=== PATIENT | female | born 1945 | race Caucasian/White ===

== ENCOUNTER → 2016-03-03 | Outpatient (CLI) | payer MEDICARE, BC ==
[~2016-03-03] MED LIST: CALCIUM 600MG+D1 TAB PO; CALCIUM600 MG PO; CINNAMON500 MG PO; DEEP SEA 45 ML45 ML; EVENING PRIMRO500 MG PO; FISH OIL500 MG PO; IBUPROFEN200 M1 PO; JANUVIA 100MG100 MG PO; MULTI MINERAL1 TAB; NATURE'S BLEND1 SG3 PO; NEURONTIN100 MG/CAP PO; NIACIN100 MG PO; NORCO 325 MG-51 TAB PO; NORVASC 5MG5 MG/TAB PO; OMEGA-3 FISH1000 MG PO; OMEPRAZOLE20 MG PO; PERCOCET 325 MG1 TA2 PO; PREMARIN0.625 MG PO; TOPROL XL50 MG PO; ULTRAM 50MG TAB50 MG PO; VITAMIN E100 I3 PO
== END ==
LOC: COL.RAD 09:25
DX: K74.69 Other cirrhosis of liver (principal); K76.89 Other specified diseases of liver

== ENCOUNTER 2016-10-12 08:13 | Day surgery (SDC) | payer MEDICARE, BC ==
[~2016-10-12] VITALS: Ht 149.9 cm; Wt 74.8 kg
[2016-10-12 09:05] VITALS: BP 127/52; PULSE 60; TEMP 97.5
[2016-10-12 09:35] VITALS: BP 126/56; PULSE 64; TEMP 97.6
[2016-10-12 09:50] VITALS: BP 127/63; PULSE 65
== END 2016-10-12 10:30 | disposition home or self-care (01) ==
LOC: SDCO 08:13
DX: K74.60 Unspecified cirrhosis of liver (principal); I85.10 Secondary esophageal varices without bleeding; K76.0 Fatty (change of) liver, not elsewhere classified; K76.6 Portal hypertension; K31.89 Other diseases of stomach and duodenum; I10 Essential (primary) hypertension; E11.9 Type 2 diabetes mellitus without complications; K57.30 Diverticulosis of large intestine without perforation or abscess without bleeding; D12.6 Benign neoplasm of colon, unspecified; K21.9 Gastro-esophageal reflux disease without esophagitis; Z79.84 Long term (current) use of oral hypoglycemic drugs; Z87.891 Personal history of nicotine dependence; Z86.73 Personal history of transient ischemic attack (TIA), and cerebral infarction without residual deficits
CPT/HCPCS: OP; J2704; J7030

== ENCOUNTER → 2016-11-24 | Outpatient (CLI) | payer MEDICARE, BC | LOC: COL.RAD 09:28 | DX: K74.69 Other cirrhosis of liver (principal) ==

== ENCOUNTER → 2017-01-18 | Outpatient (CLI) | payer MEDICARE, BC | LOC: MC.RAD 14:29 | DX: Z12.31 Encounter for screening mammogram for malignant neoplasm of breast (principal) ==

== ENCOUNTER 2017-05-10 07:38 | Day surgery (SDC) | payer MEDICARE, BC ==
[~2017-05-10] VITALS: Ht 149.9 cm; Wt 72.7 kg
[2017-05-10 08:32] VITALS: BP 124/49; PULSE 59; TEMP 98.5
[2017-05-10] MEDS ORDERED: MULTIPLE VITAMI1 CAP PO (08:53)
[2017-05-10 10:20] VITALS: BP 103/70; PULSE 61; TEMP 97.6
[2017-05-10 10:35] VITALS: BP 120/59; PULSE 63
[2017-05-10 10:50] VITALS: BP 122/63; PULSE 62
[2017-05-10 11:05] VITALS: BP 131/52; PULSE 67
== END 2017-05-10 11:12 | disposition home or self-care (01) ==
LOC: SDCO 07:38
DX: K76.6 Portal hypertension (principal); K74.69 Other cirrhosis of liver; I85.10 Secondary esophageal varices without bleeding; K29.30 Chronic superficial gastritis without bleeding; I10 Essential (primary) hypertension; E11.9 Type 2 diabetes mellitus without complications; E78.5 Hyperlipidemia, unspecified; Z79.84 Long term (current) use of oral hypoglycemic drugs; Z88.1 Allergy status to other antibiotic agents; Z88.8 Allergy status to other drugs, medicaments and biological substances; Z87.891 Personal history of nicotine dependence
CPT/HCPCS: OP; J2704; J7030

== ENCOUNTER → 2017-06-15 | Outpatient (CLI) | payer MEDICARE, BC ==
[~2017-06-15] MED LIST changes: +MULTIPLE VITAMI1 CAP PO
== END ==
LOC: COL.RAD 07:21
DX: R16.1 Splenomegaly, not elsewhere classified (principal)

== ENCOUNTER → 2017-11-22 | Outpatient (CLI) | payer MEDICARE, BC, MEDICAID | LOC: COL.RAD 08:02 | DX: K74.69 Other cirrhosis of liver (principal) ==

== ENCOUNTER 2017-12-06 10:01 | Day surgery (SDC) | payer MEDICARE, BC ==
[~2017-12-06] VITALS: Ht 149.9 cm; Wt 77.7 kg
[2017-12-06 10:42] VITALS: BP 121/54; PULSE 65; TEMP 98.2
[2017-12-06] MEDS ORDERED: JANUVIA 100MG100 MG PO (10:51)
[2017-12-06 12:20] VITALS: BP 122/48; PULSE 81; TEMP 97.2
[2017-12-06 12:30] VITALS: BP 130/66; PULSE 81
[2017-12-06 12:45] VITALS: BP 128/62; PULSE 76
== END 2017-12-06 13:00 | disposition home or self-care (01) ==
LOC: SDCO 10:01
DX: K29.30 Chronic superficial gastritis without bleeding (principal); K70.30 Alcoholic cirrhosis of liver without ascites; I85.10 Secondary esophageal varices without bleeding; I10 Essential (primary) hypertension; E11.9 Type 2 diabetes mellitus without complications; E78.00 Pure hypercholesterolemia, unspecified; K75.81 Nonalcoholic steatohepatitis (NASH); K21.9 Gastro-esophageal reflux disease without esophagitis; D64.9 Anemia, unspecified; Z88.8 Allergy status to other drugs, medicaments and biological substances; Z88.6 Allergy status to analgesic agent; Z87.891 Personal history of nicotine dependence
CPT/HCPCS: J2704; J7030

== ENCOUNTER → 2018-03-13 | Outpatient (CLI) | payer MEDICARE, BC, MEDICAID | LOC: MC.RAD 02-07 14:40 | DX: Z12.31 Encounter for screening mammogram for malignant neoplasm of breast (principal) ==

== ENCOUNTER 2018-06-20 09:15 | Day surgery (SDC) | payer MEDICARE, BC, MEDICAID ==
[~2018-06-20] VITALS: Ht 149.9 cm; Wt 78.6 kg
[2018-06-20 09:41] VITALS: BP 124/51; PULSE 60; TEMP 97.6
[2018-06-20] MEDS ORDERED: OCUFLOX OPHTH DR5 ML OP (10:12)
[2018-06-20 11:20] VITALS: BP 113/49; PULSE 66; TEMP 97.8
--- NOTE | 2018-06-20 11:20 | NUR ---
Pt to GI bay 3 via cart from [facility].. Pt deies pain or nausea. Pt ambulates to recliner with stand by assistance. Juice and muffin provided. No visitors here with pt at this time. Calll light within reach.
[2018-06-20 11:35] VITALS: BP 123/63; PULSE 73
--- NOTE | 2018-06-20 11:35 | NUR ---
Pt continues to rest. Dneies needs
[2018-06-20 11:50] VITALS: BP 118/49; PULSE 63
--- NOTE | 2018-06-20 11:50 | NUR ---
Pt continues to rest. Denies needs. Call light within reach.
[2018-06-20 12:05] VITALS: BP 115/60; PULSE 63
--- NOTE | 2018-06-20 12:05 | NUR ---
Dr. Dash into consult with pt at this time.
--- NOTE | 2018-06-20 12:15 | NUR ---
Discharge instructions reviewed. Pt voices understanding. IV site discontinued with all parts intact. Pt up to dress. Call light within reach.
--- NOTE | 2018-06-20 12:46 | NUR ---
Pt escorted to private car via wheel chair. Pt accompanied home by her friend.
== END 2018-06-20 12:46 | disposition home or self-care (01) ==
LOC: SDCO 09:15
DX: K70.30 Alcoholic cirrhosis of liver without ascites (principal); I85.10 Secondary esophageal varices without bleeding; K76.6 Portal hypertension; K31.89 Other diseases of stomach and duodenum; I10 Essential (primary) hypertension; E11.9 Type 2 diabetes mellitus without complications; K21.9 Gastro-esophageal reflux disease without esophagitis; D64.9 Anemia, unspecified; Z88.6 Allergy status to analgesic agent; Z88.8 Allergy status to other drugs, medicaments and biological substances; Z87.891 Personal history of nicotine dependence; Z79.84 Long term (current) use of oral hypoglycemic drugs
CPT/HCPCS: J2704; J7030

== ENCOUNTER → 2018-07-07 | Outpatient (CLI) | payer MEDICARE, BC ==
[~2018-07-07] MED LIST changes: +OCUFLOX OPHTH DR5 ML OP
== END ==
LOC: COL.RAD 08:15
DX: K74.69 Other cirrhosis of liver (principal)

== ENCOUNTER → 2018-12-12 | Outpatient (CLI) | payer MEDICARE, BC | LOC: COL.RAD 09:06 | DX: K74.69 Other cirrhosis of liver (principal) ==

== ENCOUNTER → 2019-01-05 | Outpatient (CLI) | payer MEDICARE, BC | LOC: COL.RAD 08:30 | DX: K74.60 Unspecified cirrhosis of liver (principal); K57.30 Diverticulosis of large intestine without perforation or abscess without bleeding | CPT/HCPCS: Q9967 ==

== ENCOUNTER → 2019-06-08 | Outpatient (CLI) | payer MEDICARE, BC, MEDICAID | LOC: COL.RAD 09:57 | DX: K74.69 Other cirrhosis of liver (principal) ==

== ENCOUNTER → 2020-03-05 | Outpatient (CLI) | payer MEDICARE, BC, MEDICAID | LOC: COL.RAD 09:26 | DX: K74.69 Other cirrhosis of liver (principal) ==

== ENCOUNTER 2020-05-27 07:07 | Day surgery (SDC) | payer MEDICARE, BC, MEDICAID ==
[~2020-05-27] VITALS: Ht 149.9 cm; Wt 75.1 kg
[2020-05-27 07:32] VITALS: BP 126/50; PULSE 73; TEMP 98.2
[2020-05-27] MEDS ORDERED: K-DUR 10 MEQ T10 MEQ PO (08:20)
[2020-05-27 09:15] VITALS: BP 117/64; PULSE 79; TEMP 97.1
[2020-05-27 09:30] VITALS: BP 124/60; PULSE 78
[2020-05-27 09:45] VITALS: BP 135/59; PULSE 76
--- NOTE | 2020-05-27 10:39 | NUR ---
PT RETURNED FROM ENDO PROCEDURE ROOM INTO BAY#4. PT ALERT AND SLEEPY. LUNGS CLEAR TO ALL KAY, BOWEL SOUNDS PRESENT AND ACTIVE, HRR AND STEADY. PT DENIES PAIN, NAUSEA AT THIS TIME. IVF RUNNING PATENT INTO RIGHT AC. VSS. PT UP TO THE BATHROOM X1 ASSIST, TOLERATED WELL. DAUGHTER AT BEDSIDE, WILL CONT TO MONITOR PROGRESS.
--- NOTE | 2020-05-27 10:43 | NUR ---
PT ALERT AND TALKING WITH DAUGHTER. TOLERATING DIET COKE AND APPLESAUCE WELL WITHOUT PAIN, NAUSEA OR VOMITING. IV DC'D WITHOUT DIFFICULTY. WILL CONT TO MONITOR PROGRESS.
--- NOTE | 2020-05-27 10:46 | NUR ---
PT IS TOLERATING PO'S WITHOUT DIFFICULTY. DISMISSAL INSTRUCTIONS EXPLAINED AND PT DENIES QUESTIONS. PT DISCHARGED THROUGH THE PATIENT ENTRANCE VIA WC TO DAUGHTER'S VEHICLE. DAUGHTER, ALFIE MILES IS DRIVING.
== END 2020-05-27 10:19 | disposition home or self-care (01) ==
LOC: SDCO 07:07
DX: D12.0 Benign neoplasm of cecum (principal); D12.3 Benign neoplasm of transverse colon; K64.0 First degree hemorrhoids; K64.4 Residual hemorrhoidal skin tags; K55.20 Angiodysplasia of colon without hemorrhage; K57.30 Diverticulosis of large intestine without perforation or abscess without bleeding; I10 Essential (primary) hypertension; E78.5 Hyperlipidemia, unspecified; E11.9 Type 2 diabetes mellitus without complications; K27.9 Peptic ulcer, site unspecified, unspecified as acute or chronic, without hemorrhage or perforation; K74.60 Unspecified cirrhosis of liver; Z20.822 Contact with and (suspected) exposure to COVID-19; Z79.899 Other long term (current) drug therapy; Z88.5 Allergy status to narcotic agent; Z88.8 Allergy status to other drugs, medicaments and biological substances
CPT/HCPCS: J2704; J7030

== ENCOUNTER 2020-08-11 11:40 | Inpatient (IN) | payer MEDICARE, MEDICAID ==
[~2020-08-11] VITALS: Ht 160 cm; Wt 70.1 kg
[2020-08-11] VITALS (159 sets, daily range): BP systolic 145; BP diastolic 69; PULSE 77; TEMP 97.5; O2SAT 78–100
[~2020-08-11 11:40] MED LIST changes: +K-DUR 10 MEQ T10 MEQ PO
[2020-08-11 13:15] LABS: COLLECTION METHOD CLEAN CATCH
[2020-08-11 13:19] LABS: INR 1.2 (0.8-3.0); PROTHROMBIN TIME 13.6 SECONDS (9.7-12.8)
[2020-08-11 13:21] LABS: BASO % 0.5 % (0.0-2.0); EOS # 0.1 (0.0-0.7); EOS % 1.4 % (0-4.0); GRAN # 2.4 (1.4-6.5); GRAN % 64.1 % (42.2-75.2); LYMPH # 0.8 (1.2-3.4); LYMPH % 22.3 % (20.0-51.0); MEAN CELL VOLUME 105 fl (80.0-100.0); MEAN CORPUSCULAR HEMOGLOBIN 37 pg (27.0-31.0); MEAN CORPUSCULAR HGB CONC 35 g/dl (33.0-37.0); MEAN PLATELET VOLUME 13.7 fl (7.4-10.4); MONO # 0.4 (0.1-0.6); MONO % 11.2 % (1.7-9.3); REDCELL DISTRIBUTION WIDTH-CV 13.5 % (11.5-14.5)
[2020-08-11 13:22] LABS: PH 8 (5-8); SQUAMOUS EPITHELIAL 0-2 /hpf; URINE APPEARANCE Clear; URINE BACTERIA Rare /hpf; URINE BILIRUBIN Negative (NEGATIVE); URINE BLOOD 2+ (NEGATIVE); URINE COLOR Yellow; URINE GLUCOSE Negative (NEGATIVE); URINE KETONE Negative (NEGATIVE); URINE LEUKOCYTE ESTERASE Negative (NEGATIVE); URINE NITRATE Negative (NEGATIVE); URINE PROTEIN(semi-quant) Negative (NEGATIVE); URINE RBC 0-2 /hpf; URINE UROBILINOGEN Negative (NEGATIVE)
[2020-08-11 13:25] LABS: HEMATOCRIT 36.7 % (37.0-47.0)
[2020-08-11 13:27] LABS: PLATELET COUNT 36 K/mm3 (130-400)
[2020-08-11 13:36] LABS: TRICYCLIC ANTIDEPRESS URINE NEGATIVE
[2020-08-11 13:54] LABS: ARTERIAL BLD GAS O2 SATURATION 94.9 % (92-100); ARTERIAL BLD GAS TCO2 CT 24.2; ARTERIAL BLOOD GAS BASE EXCESS -0.5 (-2-2); ARTERIAL BLOOD GAS HCO3 23.2 meq/L (22-26); ARTERIAL BLOOD GAS PCO2 34.9 mmHg (35-45); ARTERIAL BLOOD GAS PO2 75.4 mmHg (80-100); ARTERIAL BLOOD GAS pH 7.44 (7.35-7.45)
[2020-08-11 14:00] LABS: ALANINE AMINOTRANSFERASE 34 U/L (4-34); ALBUMIN 3.7 gm/dL (3.5-5.0); ALKALINE PHOSPHATASE 220 U/L (50-136); ANION GAP 5 mmol/L (7-16); AST,SGOT 68 U/L (15-37); BILIRUBIN,TOTAL 1.5 mg/dL (0.0-1.0); BLOOD UREA NITROGEN 13 mg/dL (7-17); CALCIUM 9.8 mg/dL (8.4-10.2); CARBON DIOXIDE 23 mmol/L (22-30); CHLORIDE 112 mmol/L (98-107); CREATININE, serum 0.64 (0.52-1.25); GLUCOSE 155 mg/dL (74-106); LIPASE 162 U/L (23-300); POTASSIUM 4.5 mmol/L (3.4-5.0); SODIUM 140 mmol/L (137-145); TOTAL PROTEIN 8.1 gm/dL (6.4-8.2)
[2020-08-11 14:01] LABS: ALCOHOL(ethanol),MEDICAL < 10 mg/dL
[2020-08-11 15:09] LABS: TROPONIN-I < 0.012 ng/mL (0.000-0.035)
[2020-08-11 15:11] LABS: PROLACTIN 47.5 ng/mL (3.0-18.6)
[2020-08-11] MEDS ORDERED: ALDACTONE 25MG25 M1 PO (16:43)
--- NOTE | 2020-08-11 18:38 | NUR ---
DR. MCLEOD HERE TO SEE PT. WROTE ORDER TO RESTART HOME MEDICATIONS. UNABLE TO VERIFY HOME MEDICATIONS AT THIS TIME DUE TO PATIENT CONDITION AND FAMILY DOES NOT KNOW WHAT MEDS SHE TAKES AT HOME. WILL ADDRESS WT HER PHARMACY AND PCP IN THE MORNING.
--- NOTE | 2020-08-11 19:30 | NUR ---
Received report from MARGARETTE Ignacio. Patient's daughter, Marlen, at bedside. Updated on plan of care.
--- NOTE | 2020-08-11 19:30 | NUR ---
DAUGHTER, ALFIE, UPDATED ON PLAN OF CARE.
--- NOTE | 2020-08-11 19:54 | NUR ---
REPORT GIVEN TO MARGARETTE STARKEY
--- NOTE | 2020-08-11 21:00 | NUR ---
Patient resting quietly in bed with eyes closed. Patient arouses to speech, although does not open her eyes or follow commands. She is very drowsy, speech is garbled/incomprehensible. She does, however, turn side to side in bed independently and firmly grasps bedrails. All vitals remain within normal limits; patient is on room air and tolerating well. Does not appear to be in any obvious discomfort or pain at this time. Bed in lowest position, call light within reach, and all alarms are on. No further needs noted at this time.
[2020-08-12] VITALS (284 sets, daily range): BP systolic 113–142; BP diastolic 36–62; PULSE 63–76; TEMP 97.8–98.6; O2SAT 90–100
[2020-08-12 08:33] LABS: BASO % 0.2 % (0.0-2.0); EOS # 0.1 (0.0-0.7); EOS % 0.9 % (0-4.0); GRAN # 3.9 (1.4-6.5); GRAN % 71.4 % (42.2-75.2); HEMATOCRIT 38.3 % (37.0-47.0); HEMOGLOBIN 13.8 g/dl (12.5-16.0); LYMPH # 0.9 (1.2-3.4); LYMPH % 16.9 % (20.0-51.0); MEAN CELL VOLUME 104 fl (80.0-100.0); MEAN CORPUSCULAR HEMOGLOBIN 37 pg (27.0-31.0); MEAN CORPUSCULAR HGB CONC 36 g/dl (33.0-37.0); MEAN PLATELET VOLUME 12.7 fl (7.4-10.4); MONO # 0.6 (0.1-0.6); MONO % 10.2 % (1.7-9.3); RED BLOOD COUNT 3.69 M/mm3 (4.10-5.30); REDCELL DISTRIBUTION WIDTH-CV 13.7 % (11.5-14.5)
[2020-08-12 08:35] LABS: PLATELET COUNT 37 K/mm3 (130-400)
[2020-08-12 08:47] LABS: ALBUMIN 3.7 gm/dL (3.5-5.0); BILIRUBIN,TOTAL 2.3 mg/dL (0.0-1.0); CALCIUM 9.5 mg/dL (8.4-10.2); CREATININE, serum 0.57 (0.52-1.25); POTASSIUM 3.6 mmol/L (3.4-5.0); TOTAL PROTEIN 8.2 gm/dL (6.4-8.2)
--- NOTE | 2020-08-12 10:23 | NUR ---
Tin Pot Operator met with patient and two of her children, Marlen (ph#[phone]) and Robin (ph#[phone]) to complete intake. Patient had difficulty answering questions, so her children assisted. Patient lives alone in a group home community here in [facility]. Patient sees Dr. Mortensen for primary care and obtains medications from [facility]. Patient's children advise that her medications are expensive, however she always makes it work. Patient normally does not use any DME and is independent with ADLS. Patient's daughter, Marlen advised that patient has DPOA-HC and a copy is located at home. Marlen reports she will be able to go get a copy today from patient's home. Marlen advised that patient is not and has six children: Marlen, Robin, Delfin, Peter, Kadi, and Niurka. Discharge Plan: SW to continue to follow for discharge needs.
--- NOTE | 2020-08-12 13:12 | NUR ---
pt TAKEN UP TO ROOM 312 WITH HELP OF RN AND WELT DRAWER BY BED.
--- NOTE | 2020-08-12 23:03 | NUR ---
ALERT AND ORIENTATED TO SELF AND THAT SHE IS IN HOSPTIAL. THINKS SHE HAD A STROKE PER AND INFORMS RN SHE CANT HOLD MOUTH SWAB TO GIVE ORAL CARE. PT IS NPO CURRENTLY AWAITING TEST MRI AND CT, WHICH WILL BE DONE IN AM. PT DAUGHTER CORRECTED AND EXPLAINED TO MOM WHY SHE WAS HERE. RECTAL TUBE IN PLACE, LIGHT BROWN LIQ BMS. LACTULOS AND KEPPRA PER ORDER. UPDATED DAUGHTER PER TEXT TONIGHT OF POC. FLORES TO DD, CLEAR YELLOW URINE. CALL LIGHT WI REACH.
[2020-08-13] VITALS (7 sets, daily range): BP systolic 105–140; BP diastolic 33–51; PULSE 58–92; TEMP 97.4–98.4
--- NOTE | 2020-08-13 05:54 | NUR ---
RESTED OFF AND ON THROUGH THE NIGHT WITHOUT INCIDENT. REMAINS NPO. MOUTH SWABS AND GOOD ORAL CARE OVERNIGHT. PT HAS HAD 2 BM IN RECTAL TUBE SINCE LAST DOSE OF LACUTLOS. 0630 DOSE WILL BE HELD. PT MORE ALERT THIS AM.
--- NOTE | 2020-08-13 16:29 | NUR ---
Toe Former contacted the patient's daughter, Marlen to review the discharge plan. SW discussed SNF vs Home Health. Marlen is not interested in SNF for the patient at this time. Marlen reports the family is going to rotate staying with the patient for support. Marlen was agreeable to home health. ELBA emailed [email or web address]'s to . Marlen to review the list then inform SW of decision. *Discharge disposition: Home with family support and home health
[2020-08-14] VITALS (7 sets, daily range): BP systolic 119–175; BP diastolic 41–64; PULSE 63–86; TEMP 97.7–98.7
[2020-08-14 08:43] LABS: HEMATOCRIT 32.7 % (37.0-47.0); HEMOGLOBIN 11.8 g/dl (12.5-16.0); MEAN CELL VOLUME 105 fl (80.0-100.0); MEAN CORPUSCULAR HEMOGLOBIN 38 pg (27.0-31.0); MEAN CORPUSCULAR HGB CONC 36 g/dl (33.0-37.0); MEAN PLATELET VOLUME 13.2 fl (7.4-10.4); RED BLOOD COUNT 3.13 M/mm3 (4.10-5.30); REDCELL DISTRIBUTION WIDTH-CV 13.5 % (11.5-14.5)
[2020-08-14 08:44] LABS: PLATELET COUNT 29 K/mm3 (130-400)
[2020-08-14 08:51] LABS: BILIRUBIN,TOTAL 2.5 mg/dL (0.0-1.0); CALCIUM 8.2 mg/dL (8.4-10.2); CREATININE, serum 0.59 (0.52-1.25); MAGNESIUM 1.7 mg/dL (1.6-2.3); POTASSIUM 3.5 mmol/L (3.4-5.0); TOTAL PROTEIN 6.9 gm/dL (6.4-8.2)
--- NOTE | 2020-08-14 13:42 | NUR ---
Rectal tube and tinajero catheter removed per hospitalist's orders. Patient handled this well. Patient's daughter has been at her bedside all day. Patient has not had any complaints and seems to be doing well so far. Patient's daughter says she is seeming more like herself. Patient is currently resting and waiting to work with PT. Patient has used the bedpan multiple times since removal of the rectal tube and tinajero.
--- NOTE | 2020-08-14 14:42 | NUR ---
OT is currently visiting with this patient. Patient did call and c/o irritation with the IV in her left AC. There was drainage from the site and pain with movement. This RN removed the IV and placed a bandage. The patient does have another IV in her left forearm that is flushing properly and free of pain.
--- NOTE | 2020-08-14 15:37 | NUR ---
Knife Sharpener attended clinical rounds with the team. The patient's daughter, Marlen was present. The patient not ready for discharge this day. After rounds, ELBA met with the patient and Marlen to discuss discharge plan. The home health agency chosen was [facility]. Marlen requested information on life alert and assisted living facilities, information provided. Referrals sent to [facility]. Awaiting screen. *Discharge disposition: home with family support and home health.
--- NOTE | 2020-08-14 18:44 | NUR ---
This patient has done very well today. She had no problem with taking any medications. 1500 FR was maintained and explained to the patient and her daughter. Patient was assisted to the bathroom multiple times by this RN and the PCT assigned to her care. The patient did not have any unaddressed complaints today.
--- NOTE | 2020-08-14 22:58 | NUR ---
ALERT AND OX3. CONT TO HAVE LOOSE STOOLS. LACTULOS HELD TONIGHT. PM MEDS GIVEN. POC DISCUSSED. CALL LIGHT WI REACH. PT MORE ALERT AND BACK TO BASELINE ACCORDING TO FAMILY TODAY DURING REPORT. NEEDS MET.
[2020-08-15 03:52] VITALS: BP 128/47; PULSE 74; TEMP 97.6
--- NOTE | 2020-08-15 05:57 | NUR ---
RESTED THROUGH THE NIGHT WITHOUT INCIDENT. NEEDS MET.
--- NOTE | 2020-08-15 07:02 | NUR ---
PT AWAKE IN ROOM, HELPED HER CALL HER SON. BREAKFAST BROUGHT IN.
[2020-08-15 07:05] LABS: HEMOGLOBIN 12.1 g/dl (12.5-16.0); MEAN CELL VOLUME 106 fl (80.0-100.0); MEAN CORPUSCULAR HEMOGLOBIN 38 pg (27.0-31.0); MEAN CORPUSCULAR HGB CONC 36 g/dl (33.0-37.0); MEAN PLATELET VOLUME 12.9 fl (7.4-10.4); RED BLOOD COUNT 3.18 M/mm3 (4.10-5.30); REDCELL DISTRIBUTION WIDTH-CV 13.4 % (11.5-14.5)
[2020-08-15 07:07] LABS: HEMATOCRIT 33.8 % (37.0-47.0)
[2020-08-15 07:08] LABS: PLATELET COUNT 28 K/mm3 (130-400)
[2020-08-15 07:19] LABS: CALCIUM 8.5 mg/dL (8.4-10.2); CREATININE, serum 0.53 (0.52-1.25); POTASSIUM 3.5 mmol/L (3.4-5.0)
[2020-08-15 07:44] VITALS: BP 130/43; PULSE 93; TEMP 97.9
--- NOTE | 2020-08-15 08:07 | NUR ---
PT PLEASANT, AOX4, NEURO CHECK NORMAL, AMBULATORY STANDBY WITH WALKER, X2 BM IN AM. PT ASSESSMENT PERFORMED, BREAKFAST IN ROOM, KEPPRA INFUSING, MEDICATIONS TAKEN WITH WATER, LABS AND VITALS REVIEWED, NO OTHER NEEDS
[2020-08-15] MEDS ORDERED: ALDACTONE 25MG25 M1 PO (09:55)
[2020-08-15] MEDS ORDERED: LACTULOSE10 GM/153 PO (09:58)
[2020-08-15 11:47] VITALS: BP 120/40; PULSE 90; TEMP 97.8
--- NOTE | 2020-08-15 12:50 | NUR ---
DISCHARGE EDUCATION GIVEN TO PT AND PT DAUGHTER. IV SITE TO LFA REMOVED. PT EATING LUNCH AT THIS TIME. NO OTHER NEEDS.
--- NOTE | 2020-08-15 13:30 | NUR ---
PT LEFT WITH DAUGHTER VIA WHEELCHAIR
--- NOTE | 2020-08-15 14:38 | NUR ---
The patient to discharged home today, 08/15 with family support and [facility]. PT/OT/Fdc The patient is needing a walker. Order sent to [facility]. The patient's daughter agreeable to milk pickup truck driver the walker. ELBA faxed discharge orders and discharge summary to Shasha at [facility]. The patient's daughter requested life alert and assisted living information. ELBA provided the information. There are no additional needs.
== END 2020-08-15 13:30 | disposition home health service (06) | DRG 441 ==
LOC: COL.ER 11:40 → ICU 14:47 → MEDICAL 14:47 → ICU 08-12 09:59 → MEDICAL 08-12 13:22
PROVIDERS: Emergency Medicine; Physician Assistant; ADMIT Hospitalist
DX: K72.90 Hepatic failure, unspecified without coma (principal); G93.41 Metabolic encephalopathy; I81 Portal vein thrombosis; K75.81 Nonalcoholic steatohepatitis (NASH); K74.60 Unspecified cirrhosis of liver; E11.9 Type 2 diabetes mellitus without complications; I10 Essential (primary) hypertension; R53.81 Other malaise; D69.6 Thrombocytopenia, unspecified; Z20.822 Contact with and (suspected) exposure to COVID-19; Z79.84 Long term (current) use of oral hypoglycemic drugs; Z87.891 Personal history of nicotine dependence; Z88.8 Allergy status to other drugs, medicaments and biological substances; Z88.6 Allergy status to analgesic agent; Z88.0 Allergy status to penicillin
CPT/HCPCS: 99223-AI; 99232-AI; 99233-AI; 99239; A9585; J1815; J1953; J2060; Q9967

== ENCOUNTER 2020-08-21 16:08 | Observation (INO) | payer MEDICARE, MEDICAID ==
[~2020-08-21] VITALS: Ht 162.6 cm; Wt 90.9 kg
[~2020-08-21 16:08] MED LIST changes: +ALDACTONE 25MG25 M1 PO; +LACTULOSE10 GM/153 PO
[2020-08-21 16:42] LABS: ALANINE AMINOTRANSFERASE 32 U/L (4-34); ALBUMIN 3.8 gm/dL (3.5-5.0); ALKALINE PHOSPHATASE 167 U/L (50-136); ANION GAP 7 mmol/L (7-16); AST,SGOT 70 U/L (15-37); BILIRUBIN,TOTAL 2.8 mg/dL (0.0-1.0); BLOOD UREA NITROGEN 10 mg/dL (7-17); CALCIUM 9.3 mg/dL (8.4-10.2); CARBON DIOXIDE 24 mmol/L (22-30); CHLORIDE 103 mmol/L (98-107); CREATININE, serum 0.69 (0.52-1.25); GLUCOSE 134 mg/dL (74-106); SODIUM 134 mmol/L (137-145); TOTAL PROTEIN 8.6 gm/dL (6.4-8.2)
[2020-08-21 16:43] LABS: LACTIC ACID 2.3 mmol/L (0.4-2.0)
[2020-08-21 16:51] LABS: HEMATOCRIT 38.3 % (37.0-47.0); HEMOGLOBIN 13.6 g/dl (12.5-16.0); MEAN CELL VOLUME 105 fl (80.0-100.0); MEAN CORPUSCULAR HEMOGLOBIN 37 pg (27.0-31.0); MEAN CORPUSCULAR HGB CONC 36 g/dl (33.0-37.0); MEAN PLATELET VOLUME 12.9 fl (7.4-10.4); RED BLOOD COUNT 3.64 M/mm3 (4.10-5.30); REDCELL DISTRIBUTION WIDTH-CV 14.5 % (11.5-14.5)
[2020-08-21 16:54] LABS: TROPONIN-I < 0.012 ng/mL (0.000-0.035)
[2020-08-21 16:58] LABS: PLATELET COUNT 34 K/mm3 (130-400)
[2020-08-21 17:31] LABS: INR 1.3 (0.8-3.0); PROTHROMBIN TIME 14.5 SECONDS (9.7-12.8)
[2020-08-21 18:23] LABS: BAND 3 % (0-10); LYMPHOCYTE 5 % (20.0-51.0); NEUTROPHILS 87 % (42.0-75.2)
[2020-08-21 18:24] LABS: PLATELET ESTIMATE DECREASED (NORMAL)
[2020-08-21 18:50] LABS: COLLECTION METHOD CLEAN CATCH
[2020-08-21 19:05] LABS: BUDDING YEAST Present /hpf; MUCOUS Present /lpf; PH 6 (5-8); SQUAMOUS EPITHELIAL 20-50 /hpf; URINE APPEARANCE Turbid; URINE BACTERIA Rare /hpf; URINE BILIRUBIN Negative (NEGATIVE); URINE BLOOD 3+ (NEGATIVE); URINE COLOR Yellow; URINE GLUCOSE Negative (NEGATIVE); URINE KETONE Trace (NEGATIVE); URINE LEUKOCYTE ESTERASE 2+ (NEGATIVE); URINE NITRATE Negative (NEGATIVE); URINE PROTEIN(semi-quant) 2+ (NEGATIVE); URINE RBC >50 /hpf; URINE UROBILINOGEN Negative (NEGATIVE)
[2020-08-21 19:34] LABS: MAGNESIUM 1.6 mg/dL (1.6-2.3); PHOSPHOROUS 2.4 mg/dL (2.5-4.5)
[2020-08-21 19:49] LABS: TROPONIN-I < 0.012 ng/mL (0.000-0.035)
[2020-08-21 20:06] LABS: TSH w REFLEX 0.617 uIU/mL (0.465-4.680)
[2020-08-21 20:19] LABS: COLLECTION METHOD CATHETER
[2020-08-21 20:30] LABS: MUCOUS Present /lpf; PH 5 (5-8); SQUAMOUS EPITHELIAL 0-2 /hpf; URINE APPEARANCE Turbid; URINE BACTERIA Occasional /hpf; URINE BILIRUBIN Negative (NEGATIVE); URINE BLOOD 3+ (NEGATIVE); URINE COLOR Amber; URINE GLUCOSE Negative (NEGATIVE); URINE KETONE Negative (NEGATIVE); URINE LEUKOCYTE ESTERASE 2+ (NEGATIVE); URINE NITRATE Negative (NEGATIVE); URINE PROTEIN(semi-quant) 3+ (NEGATIVE); URINE RBC >50 /hpf
[2020-08-21] MEDS ORDERED: ENULOSE10 GM/15 M PO (20:32)
[2020-08-21] MEDS ORDERED: NORVASC 5MG5 MG/TAB PO (20:34)
[2020-08-21 21:36] VITALS: BP 101/55; PULSE 64; TEMP 98.3
--- NOTE | 2020-08-21 23:22 | NUR ---
Mrs. Diego came around 2100 for letargic. Pt is AOX4. Vss. Will conitinue to monitor.
[2020-08-21 23:32] VITALS: BP 103/33; PULSE 65; TEMP 97.8
[2020-08-22 03:56] VITALS: BP 111/33; PULSE 65; TEMP 98
[2020-08-22 07:00] LABS: BASO % 0.4 % (0.0-2.0); EOS # 0.1 (0.0-0.7); EOS % 0.6 % (0-4.0); GRAN # 6.6 (1.4-6.5); GRAN % 78.7 % (42.2-75.2); LYMPH # 0.9 (1.2-3.4); LYMPH % 10.2 % (20.0-51.0); MEAN CELL VOLUME 109 fl (80.0-100.0); MEAN CORPUSCULAR HGB CONC 35 g/dl (33.0-37.0); MONO # 0.8 (0.1-0.6); MONO % 9.7 % (1.7-9.3); RED BLOOD COUNT 2.94 M/mm3 (4.10-5.30); REDCELL DISTRIBUTION WIDTH-CV 14.8 % (11.5-14.5)
[2020-08-22 07:02] LABS: HEMATOCRIT 31.9 % (37.0-47.0); HEMOGLOBIN 11.1 g/dl (12.5-16.0); MEAN CORPUSCULAR HEMOGLOBIN 38 pg (27.0-31.0)
[2020-08-22 07:04] LABS: PLATELET COUNT 27 K/mm3 (130-400)
[2020-08-22 07:09] LABS: ALBUMIN 2.8 gm/dL (3.5-5.0); BILIRUBIN,TOTAL 1.4 mg/dL (0.0-1.0); CALCIUM 7.5 mg/dL (8.4-10.2); CREATININE, serum 0.78 (0.52-1.25); POTASSIUM 3.9 mmol/L (3.4-5.0); TOTAL PROTEIN 6.6 gm/dL (6.4-8.2)
[2020-08-22 07:38] VITALS: BP 124/39; PULSE 69; TEMP 98.8
--- NOTE | 2020-08-22 10:19 | NUR ---
AT APPROXIMATELY 1000 TELE SURGERY SCHEDULER CONTACTED THIS NURSE TO REPORT TACHYCARDIA RUNNING IN THE 130'S, 140'S UPON ENTERING THE ROOM THE PT WAS AMBULATING WITH PT/OT. ONCE VITALS WERE OBTAINED THE TEMPERATURE RECORDED WAS 100.1, THIS NURSE CONTACTED HOSPITALIST AND TYLENOL WAS ORDERED AND ADMINISTERED ORDERED. PT REMAINS A/OX4, DENIES PAIN, N,V. CONTINUES TO HAVE LOOSE STOOLS. NURSE WILL CONTINUE TO F/U. CALL LIGHT WITHIN REACH.
[2020-08-22 11:34] VITALS: BP 125/39; PULSE 84; TEMP 100
--- NOTE | 2020-08-22 13:02 | NUR ---
System Dispatcher contacted the patient's daughter/DPOA-HC, Marlen to complete intake. The patient lives alone in [place]. However, Marlen is staying with the patient to assist. The plan is for the patient to return home with continued family support and [facility]. The patient's PCP is Dr. Mortensen and patient receives medications from [facility]. The patient has a walker, cane, BP machine, and slideboard for showers. The patient has advanced directives in the EMR. Marlen discussed getting the patient set up with assisted living in the [facility]. SW to discuss assisted living with the patient. ELBA collaborated the above information with the PA. *Discharge disposition: Home with family support and [facility]. PT/OT/Nursing*
[2020-08-22 17:35] VITALS: BP 109/39; PULSE 65; TEMP 98.3
--- NOTE | 2020-08-22 18:20 | NUR ---
PT HAD UNEVENTFUL DAY, PT CURRENTLY AFEBRILE, A/OX4, CURRENTLY RUNNING SOFT BP'S. ANTIBIOTICS ADMINISTERED ORDERED, INSULIN ADMINISTERED ORDERED. PT CURRENTLY EXPRESSES NO ADDITIONAL NEEDS AT THIS TIME. CALL LIGHT WITHIN REACH.
[2020-08-22 19:46] VITALS: PULSE 67; TEMP 97.8
--- NOTE | 2020-08-22 20:00 | NUR ---
Report received, assumed care for night clerk. Assessment complete. A&Ox3-drowsy. Denies pain/nausea. Short of breath with activity. VS tbghhj-pgiaesjmncx-swtbwwdu aware. Plan of care discussed for this shift to include HS meds/antibiotics/neuro checks Q2H. Verbalizes understanding/denies needs. Call light in reach. Will monitor.
[2020-08-23 00:09] VITALS: BP 118/48; PULSE 68; TEMP 98.2
--- NOTE | 2020-08-23 00:20 | NUR ---
Resting in bed eyes closed. No s/s of pain/discomfort noted.
[2020-08-23 04:48] VITALS: BP 122/46; PULSE 77; TEMP 97.6
--- NOTE | 2020-08-23 05:30 | NUR ---
Rested well this shift. Denied pain/nausea/shortness of breath. VS remained stable-slightly hypotensive. Stand by assist with walker. Denies current needs. Call light in reach. Will monitor.
[2020-08-23 07:48] VITALS: BP 123/54; BP 132/54; PULSE 77; TEMP 98
[2020-08-23] MEDS ORDERED: OMNICEF 300MG300 MG PO (08:54)
[2020-08-23] MEDS ORDERED: DIFLUCAN200 MG PO (08:55)
--- NOTE | 2020-08-23 10:22 | NUR ---
Maricruz faxed over D/c orders to charleen Morillo 07/24
== END 2020-08-23 11:30 | disposition home health service (06) ==
LOC: COL.ER 16:08 → MEDICAL 19:52
PROVIDERS: Emergency Medicine; Nurse Practitioner Family; ADMIT Family Medicine
DX: G93.40 Encephalopathy, unspecified (principal); A41.51 Sepsis due to Escherichia coli [E. coli]; I81 Portal vein thrombosis; N39.0 Urinary tract infection, site not specified; B96.20 Unspecified Escherichia coli [E. coli] as the cause of diseases classified elsewhere; R41.82 Altered mental status, unspecified; I10 Essential (primary) hypertension; E11.9 Type 2 diabetes mellitus without complications; K74.60 Unspecified cirrhosis of liver; K75.81 Nonalcoholic steatohepatitis (NASH); D69.6 Thrombocytopenia, unspecified; Z20.822 Contact with and (suspected) exposure to COVID-19; Z79.84 Long term (current) use of oral hypoglycemic drugs; Z79.891 Long term (current) use of opiate analgesic; Z79.899 Other long term (current) drug therapy; Z87.891 Personal history of nicotine dependence
CPT/HCPCS: G0378; J0696; J1815; J1956; J7030

== ENCOUNTER 2020-12-26 09:41 | Emergency (ER) | payer MEDICARE, MEDICAID ==
[~2020-12-26] VITALS: Ht 149.9 cm; Wt 67.3 kg
[~2020-12-26 09:41] MED LIST changes: +DIFLUCAN200 MG PO; +ENULOSE10 GM/15 M PO; +OMNICEF 300MG300 MG PO
[2020-12-26] MEDS ORDERED: TOPROL XL 50MG50 MG PO (10:21)
[2020-12-26] MEDS ORDERED: PRILOSEC 20MG20 MG PO (10:22)
[2020-12-26 10:33] LABS: BASO % 0.3 % (0.0-2.0); EOS # 0.1 K/mm3 (0.0-0.7); GRAN # 1.9 K/mm3 (1.4-6.5); GRAN % 64.6 % (42.2-75.2); HEMOGLOBIN 11.6 g/dl (12.5-16.0); LYMPH # 0.6 K/mm3 (1.2-3.4); LYMPH % 21.1 % (20.0-51.0); MEAN CELL VOLUME 108 fl (80.0-100.0); MEAN CORPUSCULAR HEMOGLOBIN 38 pg (27.0-31.0); MEAN CORPUSCULAR HGB CONC 35 g/dl (33.0-37.0); MEAN PLATELET VOLUME 13.4 fl (7.4-10.4); MONO # 0.4 K/mm3 (0.1-0.6); MONO % 11.7 % (1.7-9.3); RED BLOOD COUNT 3.06 M/mm3 (4.10-5.30); REDCELL DISTRIBUTION WIDTH-CV 13.4 % (11.5-14.5)
[2020-12-26 10:35] LABS: PLATELET COUNT 34 K/mm3 (130-400)
[2020-12-26 10:43] LABS: INR 1.3 (0.8-3.0); PROTHROMBIN TIME 14.9 SECONDS (9.7-12.8)
[2020-12-26 10:45] LABS: ALBUMIN 2.9 gm/dL (3.4-4.8); BILIRUBIN,TOTAL 2.8 mg/dL (0.2-1.2); CALCIUM 9.2 mg/dL (8.4-10.2); CREATININE, serum 1.1 mg/dL (0.57-1.11); POTASSIUM 4.1 mmol/L (3.5-4.5); TOTAL PROTEIN 7.3 gm/dL (6.2-8.1)
[2020-12-26 10:46] LABS: PARTIAL THROMBOPLASTIN TIME 31.7 SECONDS (26.0-37.0)
[2020-12-26 10:50] LABS: TROPONIN-I 0.019 ng/mL (0.00-0.033)
[2020-12-26 12:00] VITALS: BP 136/52; PULSE 62; TEMP 98
== END 2020-12-26 12:05 | disposition home or self-care (01) ==
LOC: COL.ER 09:41
PROVIDERS: Emergency Medicine
DX: R25.1 Tremor, unspecified (principal); I10 Essential (primary) hypertension; E11.9 Type 2 diabetes mellitus without complications; Z79.84 Long term (current) use of oral hypoglycemic drugs; Z79.899 Other long term (current) drug therapy
CPT/HCPCS: J7050

== ENCOUNTER 2021-02-12 14:27 | Emergency (ER) | payer MEDICARE, MEDICAID ==
[~2021-02-12] VITALS: Ht 149.9 cm; Wt 65.5 kg
[~2021-02-12 14:27] MED LIST changes: +PRILOSEC 20MG20 MG PO; +TOPROL XL 50MG50 MG PO
[2021-02-12 14:28] VITALS: TEMP 97.8
[2021-02-12 15:21] LABS: BASO % 0.3 % (0.0-2.0); EOS # 0.1 K/mm3 (0.0-0.7); EOS % 1.5 % (0.0-4.0); GRAN % 61.2 % (42.2-75.2); HEMATOCRIT 33.3 % (37.0-47.0); HEMOGLOBIN 11.9 g/dl (12.5-16.0); LYMPH # 0.8 K/mm3 (1.2-3.4); LYMPH % 25.3 % (20.0-51.0); MEAN CELL VOLUME 108 fl (80.0-100.0); MEAN CORPUSCULAR HEMOGLOBIN 39 pg (27-31); MEAN CORPUSCULAR HGB CONC 36 g/dl (33.0-37.0); MEAN PLATELET VOLUME 13.4 fl (7.4-10.4); MONO # 0.4 K/mm3 (0.1-0.6); MONO % 11.4 % (1.7-9.3); RED BLOOD COUNT 3.09 M/mm3 (4.10-5.30); REDCELL DISTRIBUTION WIDTH-CV 13.7 % (11.5-14.5)
[2021-02-12 15:22] LABS: PLATELET COUNT 34 K/mm3 (130-400)
[2021-02-12 15:26] LABS: INR 1.3 (0.8-3.0); PROTHROMBIN TIME 14.9 SECONDS (9.7-12.8)
[2021-02-12 15:29] LABS: COLLECTION METHOD CLEAN CATCH
[2021-02-12 15:39] LABS: ALBUMIN 3.3 gm/dL (3.4-4.8); BILIRUBIN,TOTAL 2.5 mg/dL (0.2-1.2); CALCIUM 9.4 mg/dL (8.4-10.2); CREATININE, serum 0.96 mg/dL (0.57-1.11); POTASSIUM 3.8 mmol/L (3.5-4.5); TOTAL PROTEIN 7.7 gm/dL (6.2-8.1)
[2021-02-12 15:41] LABS: MUCOUS Present (NOT PRESENT); PH 6 (5-8); SQUAMOUS EPITHELIAL 0-2 /hpf (0-10); URINE APPEARANCE Clear (CLEAR/HAZY); URINE BACTERIA None Seen /hpf (NONE SEEN); URINE BILIRUBIN Negative (NEGATIVE); URINE BLOOD Negative (NEGATIVE); URINE COLOR Yellow (YELLOW); URINE GLUCOSE Negative (NEGATIVE); URINE KETONE Negative (NEGATIVE); URINE LEUKOCYTE ESTERASE Negative (NEGATIVE); URINE NITRATE Negative (NEGATIVE); URINE PROTEIN(semi-quant) Negative (NEGATIVE); URINE RBC 0-2 /hpf (0-2); URINE UROBILINOGEN Negative (NEGATIVE)
[2021-02-12 16:05] VITALS: BP 130/61; PULSE 80
== END 2021-02-12 16:30 | disposition home or self-care (01) ==
LOC: COL.ER 14:27
PROVIDERS: Emergency Medicine
DX: R41.0 Disorientation, unspecified (principal); I10 Essential (primary) hypertension; E11.9 Type 2 diabetes mellitus without complications; Z86.718 Personal history of other venous thrombosis and embolism; Z87.738 Personal history of other specified (corrected) congenital malformations of digestive system; Z79.84 Long term (current) use of oral hypoglycemic drugs; Z79.899 Other long term (current) drug therapy

== ENCOUNTER → 2021-02-16 | Outpatient (CLI) | payer MEDICARE, MEDICAID | LOC: COL.RAD 09:01 | DX: I81 Portal vein thrombosis (principal) ==

== ENCOUNTER → 2021-05-13 | Outpatient (CLI) | payer MEDICARE, MEDICAID ==
[2021-05-13 10:42] LABS: THYROID STIMULATING HORMONE 1.383 uIU/mL (0.350-4.940)
== END ==
LOC: ZLAB.STJ 09:44
PROVIDERS: Psychiatry & Neurology Neurology
DX: D61.818 Other pancytopenia (principal); G93.49 Other encephalopathy; K74.60 Unspecified cirrhosis of liver; E83.42 Hypomagnesemia; K72.10 Chronic hepatic failure without coma; Z91.14 Patient's other noncompliance with medication regimen

== ENCOUNTER → 2021-05-14 | Outpatient (CLI) | payer MEDICARE, MEDICAID ==
[2021-05-16 14:13] LABS: CADMIUM BLOOD 0.7 ng/mL (<5.0); LEAD,SERUM** <1.0 mcg/dL (<5.0); MERCURY,SERUM 2 ng/mL (<10)
== END ==
LOC: ZLAB.STJ 16:10
PROVIDERS: Psychiatry & Neurology Neurology
DX: D61.818 Other pancytopenia (principal); K70.10 Alcoholic hepatitis without ascites; G93.49 Other encephalopathy

== ENCOUNTER → 2021-05-30 | Outpatient (CLI) | payer MEDICARE, MEDICAID ==
[2021-05-30 13:52] LABS: BILIRUBIN,TOTAL 2.3 mg/dL (0.2-1.2); CALCIUM 9.1 mg/dL (8.4-10.2); CREATININE, serum 1.25 mg/dL (0.57-1.11); MAGNESIUM 1.8 mg/dL (1.6-2.6); POTASSIUM 3.8 mmol/L (3.5-4.5); TOTAL PROTEIN 7.2 gm/dL (6.2-8.1)
[2021-05-30 13:54] LABS: PROLACTIN 29.4 ng/mL (5.18-26.53)
[2021-05-30 18:15] LABS: COLLECTION METHOD CLEAN CATCH
[2021-05-30 18:44] LABS: MUCOUS Present (NOT PRESENT); PH 6 (5-8); SQUAMOUS EPITHELIAL None Seen /hpf (0-10); URINE APPEARANCE Clear (CLEAR/HAZY); URINE BACTERIA None Seen /hpf (NONE SEEN); URINE BILIRUBIN Negative (NEGATIVE); URINE BLOOD Negative (NEGATIVE); URINE COLOR Yellow (YELLOW); URINE GLUCOSE Negative (NEGATIVE); URINE KETONE Negative (NEGATIVE); URINE LEUKOCYTE ESTERASE Negative (NEGATIVE); URINE NITRATE Negative (NEGATIVE); URINE PROTEIN(semi-quant) Negative (NEGATIVE); URINE RBC None Seen /hpf (0-2); URINE UROBILINOGEN Negative (NEGATIVE)
== END ==
LOC: COL.LAB 11:35
PROVIDERS: Emergency Medicine
DX: K72.10 Chronic hepatic failure without coma (principal); G93.49 Other encephalopathy; E83.42 Hypomagnesemia; K76.6 Portal hypertension; N39.0 Urinary tract infection, site not specified

== ENCOUNTER 2021-06-01 10:12 | Emergency (ER) | payer MEDICARE, MEDICAID ==
[~2021-06-01] VITALS: Ht 149.9 cm; Wt 66.4 kg
[2021-06-01 11:12] LABS: BASO % 0.6 % (0.0-2.0); EOS # 0.1 K/mm3 (0.0-0.7); EOS % 2.3 % (0.0-4.0); GRAN # 2.2 K/mm3 (1.4-6.5); GRAN % 62.4 % (42.2-75.2); HEMOGLOBIN 11.8 g/dl (12.5-16.0); LYMPH # 0.8 K/mm3 (1.2-3.4); LYMPH % 23.8 % (20.0-51.0); MEAN CELL VOLUME 110 fl (80.0-100.0); MEAN CORPUSCULAR HEMOGLOBIN 38 pg (27-31); MEAN CORPUSCULAR HGB CONC 34 g/dl (33.0-37.0); MEAN PLATELET VOLUME 13.4 fl (7.4-10.4); MONO # 0.4 K/mm3 (0.1-0.6); MONO % 10.6 % (1.7-9.3); RED BLOOD COUNT 3.11 M/mm3 (4.10-5.30); REDCELL DISTRIBUTION WIDTH-CV 13.5 % (11.5-14.5)
[2021-06-01 11:14] LABS: HEMATOCRIT 34.3 % (37.0-47.0)
[2021-06-01 11:15] LABS: PLATELET COUNT 46 K/mm3 (130-400)
[2021-06-01 11:26] LABS: ALANINE AMINOTRANSFERASE 20 U/L (0-55); ALBUMIN 2.9 gm/dL (3.4-4.8); ALKALINE PHOSPHATASE 154 U/L (40-150); ANION GAP 9 mmol/L (7-16); AST,SGOT 41 U/L (5-34); BILIRUBIN,TOTAL 1.6 mg/dL (0.2-1.2); BLOOD UREA NITROGEN 14 mg/dL (10-20); CALCIUM 9.2 mg/dL (8.4-10.2); CARBON DIOXIDE 22 mmol/L (23-31); CHLORIDE 108 mmol/L (98-107); CREATININE, serum 1.25 mg/dL (0.57-1.11); GLUCOSE 248 mg/dL (70-99); POTASSIUM 3.4 mmol/L (3.5-4.5); SODIUM 139 mmol/L (136-145); TOTAL PROTEIN 7.3 gm/dL (6.2-8.1)
[2021-06-01 11:33] LABS: TROPONIN-I < 0.010 ng/mL (0.00-0.033)
[2021-06-01 12:02] LABS: COLLECTION METHOD CATHETER
[2021-06-01 12:09] LABS: MUCOUS Present (NOT PRESENT); PH 6 (5-8); URINE APPEARANCE Hazy (CLEAR/HAZY); URINE BACTERIA None Seen /hpf (NONE SEEN); URINE BILIRUBIN Negative (NEGATIVE); URINE BLOOD Negative (NEGATIVE); URINE COLOR Yellow (YELLOW); URINE GLUCOSE Negative (NEGATIVE); URINE KETONE Negative (NEGATIVE); URINE LEUKOCYTE ESTERASE Trace (NEGATIVE); URINE NITRATE Negative (NEGATIVE); URINE PROTEIN(semi-quant) Negative (NEGATIVE); URINE RBC 0-2 /hpf (0-2); URINE UROBILINOGEN Negative (NEGATIVE)
[2021-06-01 14:22] VITALS: BP 136/55; PULSE 64; TEMP 97.1
== END 2021-06-01 14:22 | disposition home or self-care (01) ==
LOC: COL.ER 10:12
PROVIDERS: Nurse Practitioner
DX: R07.9 Chest pain, unspecified (principal); R25.1 Tremor, unspecified; R47.9 Unspecified speech disturbances

== ENCOUNTER → 2021-06-26 | Outpatient (REF) ==
[~2021-06-26] MED LIST changes: +FLEXERIL 1010 MG/TAB PO; +JANUVIA50 MG PO; +KEPPRA 500MG500 MG PO; +MULTI VITAMINS1 TAB PO; +SALONPAS1 EACH TP; +XIFAXAN550 MG PO
[2021-06-26 16:35] LABS: BASO % 0.7 % (0.0-2.0); EOS # 0.1 K/mm3 (0.0-0.7); EOS % 2.7 % (0.0-4.0); GRAN # 1.8 K/mm3 (1.4-6.5); GRAN % 61.6 % (42.2-75.2); HEMOGLOBIN 10.6 g/dl (12.5-16.0); LYMPH # 0.6 K/mm3 (1.2-3.4); LYMPH % 20.4 % (20.0-51.0); MEAN CELL VOLUME 106 fl (80.0-100.0); MEAN CORPUSCULAR HEMOGLOBIN 38 pg (27-31); MEAN CORPUSCULAR HGB CONC 35 g/dl (33.0-37.0); MEAN PLATELET VOLUME 14.3 fl (7.4-10.4); MONO # 0.4 K/mm3 (0.1-0.6); MONO % 14.3 % (1.7-9.3); RED BLOOD COUNT 2.83 M/mm3 (4.10-5.30); REDCELL DISTRIBUTION WIDTH-CV 12.7 % (11.5-14.5)
[2021-06-26 16:48] LABS: CALCIUM 8.8 mg/dL (8.4-10.2); CREATININE, serum 1.18 mg/dL (0.57-1.11)
[2021-06-26 18:50] LABS: HEMATOCRIT 30.1 % (37.0-47.0)
[2021-06-26 18:51] LABS: PLATELET COUNT 34 K/mm3 (130-400)
== END ==
LOC: ZLAB.STJ 16:24
PROVIDERS: Internal Medicine
DX: K74.60 Unspecified cirrhosis of liver (principal); E11.9 Type 2 diabetes mellitus without complications

== ENCOUNTER 2021-06-29 13:15 | Observation (INO) | payer MEDICARE, MEDICAID ==
[~2021-06-29] VITALS: Ht 149.9 cm; Wt 86.4 kg
[~2021-06-29 13:15] MED LIST changes: -FLEXERIL 1010 MG/TAB PO; -JANUVIA50 MG PO; -KEPPRA 500MG500 MG PO; -MULTI VITAMINS1 TAB PO; -SALONPAS1 EACH TP; -XIFAXAN550 MG PO
[2021-06-29 14:16] LABS: BASO % 0.4 % (0.0-2.0); EOS # 0.1 K/mm3 (0.0-0.7); EOS % 3.1 % (0.0-4.0); GRAN # 1.6 K/mm3 (1.4-6.5); GRAN % 60.3 % (42.2-75.2); HEMOGLOBIN 12.2 g/dl (12.5-16.0); LYMPH # 0.6 K/mm3 (1.2-3.4); LYMPH % 24.6 % (20.0-51.0); MEAN CELL VOLUME 108 fl (80.0-100.0); MEAN CORPUSCULAR HEMOGLOBIN 38 pg (27-31); MEAN CORPUSCULAR HGB CONC 35 g/dl (33.0-37.0); MONO # 0.3 K/mm3 (0.1-0.6); MONO % 11.2 % (1.7-9.3); RED BLOOD COUNT 3.25 M/mm3 (4.10-5.30); REDCELL DISTRIBUTION WIDTH-CV 13.1 % (11.5-14.5)
[2021-06-29 14:21] LABS: COLLECTION METHOD CLEAN CATCH
[2021-06-29 14:26] LABS: PLATELET COUNT 28 K/mm3 (130-400)
[2021-06-29 14:28] LABS: MUCOUS Present (NOT PRESENT); PH 5 (5-8); SQUAMOUS EPITHELIAL None Seen /hpf (0-10); URINE APPEARANCE Clear (CLEAR/HAZY); URINE BACTERIA None Seen /hpf (NONE SEEN); URINE BILIRUBIN Negative (NEGATIVE); URINE BLOOD Negative (NEGATIVE); URINE COLOR Yellow (YELLOW); URINE GLUCOSE Negative (NEGATIVE); URINE KETONE Negative (NEGATIVE); URINE LEUKOCYTE ESTERASE Negative (NEGATIVE); URINE NITRATE Negative (NEGATIVE); URINE PROTEIN(semi-quant) Negative (NEGATIVE); URINE RBC 0-2 /hpf (0-2); URINE UROBILINOGEN Negative (NEGATIVE)
[2021-06-29 14:30] LABS: ALANINE AMINOTRANSFERASE 13 U/L (0-55); ALBUMIN 3.1 gm/dL (3.4-4.8); ALKALINE PHOSPHATASE 154 U/L (40-150); ANION GAP 9 mmol/L (7-16); AST,SGOT 43 U/L (5-34); BILIRUBIN,TOTAL 1.5 mg/dL (0.2-1.2); BLOOD UREA NITROGEN 23 mg/dL (10-20); CALCIUM 9.4 mg/dL (8.4-10.2); CARBON DIOXIDE 19 mmol/L (23-31); CHLORIDE 114 mmol/L (98-107); CREATININE, serum 1.66 mg/dL (0.57-1.11); GLUCOSE 127 mg/dL (70-99); POTASSIUM 4.2 mmol/L (3.5-4.5); SODIUM 142 mmol/L (136-145); TOTAL PROTEIN 7.4 gm/dL (6.2-8.1)
[2021-06-29 14:39] LABS: TROPONIN-I < 0.010 ng/mL (0.00-0.033)
[2021-06-29 14:47] LABS: INR 1.2 (0.8-3.0); PROTHROMBIN TIME 14.2 SECONDS (9.7-12.8)
[2021-06-29 14:55] LABS: ARTERIAL BLD GAS O2 SATURATION 96.5 % (92-100); ARTERIAL BLD GAS TCO2 CT 17.8; ARTERIAL BLOOD GAS BASE EXCESS -6.9 (-2-2); ARTERIAL BLOOD GAS HCO3 16.9 meq/L (22-26); ARTERIAL BLOOD GAS PCO2 28.9 mmHg (35-45); ARTERIAL BLOOD GAS PO2 88.9 mmHg (80-100); ARTERIAL BLOOD GAS pH 7.39 (7.35-7.45)
[2021-06-29 20:00] VITALS: BP 132/56; PULSE 69; TEMP 97.8
[2021-06-29 23:56] VITALS: BP 136/44; PULSE 61; TEMP 97.9
[2021-06-30] MEDS ORDERED: KEPPRA 500MG500 MG PO (00:14)
[2021-06-30] MEDS ORDERED: JANUVIA50 MG PO (00:15)
[2021-06-30] MEDS ORDERED: FLEXERIL 1010 MG/TAB PO (00:16)
[2021-06-30] MEDS ORDERED: SALONPAS1 EACH TP (00:18)
--- NOTE | 2021-06-30 00:59 | NUR ---
PATIENT UP TO ROOM 310. SLIDE BOARD TRANSFER TO BED. NOT ANSWERING QUESTIONS AT THIS TIME. GOWN AND BEDDING CHANGED, PATIENT HAD SMALL YELLOW/BROWN SOFT STOOL. MED RX COMPLETED WITH CHART. ADMIN ASSESSMENT COMPLETED. MCLEOD IN TO SEE PATIENT. ORDER TO GIVE IV KEPPRA AND HOLD PO KEPPRA UNTIL TOMORROW MORNING. FLORES TO DD WITH CLEAR YELLOW URINE OUTPUT. IV TO R HAND AND L FA PATENT AND FLUSH EASILY. PATIENT IN BED, DENYING PAIN. PARTIALLY ORIENTED AND DOES ANSWER SOME QUESTIONS AND SPEAK SPONTANEOUSLY. CALL LIGHT IN REACH, BED ALARM ON. SEIZURE PRECAUTIONS IN PLACE.
[2021-06-30 04:09] VITALS: BP 109/42; PULSE 57; TEMP 98.2
[2021-06-30 06:57] LABS: BASO % 0.6 % (0.0-2.0); EOS # 0.1 K/mm3 (0.0-0.7); EOS % 3.1 % (0.0-4.0); GRAN # 1.8 K/mm3 (1.4-6.5); GRAN % 57.1 % (42.2-75.2); LYMPH # 0.9 K/mm3 (1.2-3.4); LYMPH % 27.3 % (20.0-51.0); MEAN CELL VOLUME 108 fl (80.0-100.0); MEAN CORPUSCULAR HEMOGLOBIN 37 pg (27-31); MEAN CORPUSCULAR HGB CONC 35 g/dl (33.0-37.0); MEAN PLATELET VOLUME 13.5 fl (7.4-10.4); MONO # 0.4 K/mm3 (0.1-0.6); MONO % 11.6 % (1.7-9.3); RED BLOOD COUNT 2.96 M/mm3 (4.10-5.30); REDCELL DISTRIBUTION WIDTH-CV 13.2 % (11.5-14.5)
[2021-06-30 07:09] LABS: ALBUMIN 2.7 gm/dL (3.4-4.8); BILIRUBIN,TOTAL 1.9 mg/dL (0.2-1.2); CALCIUM 8.4 mg/dL (8.4-10.2); CREATININE, serum 1.13 mg/dL (0.57-1.11); POTASSIUM 4.1 mmol/L (3.5-4.5); TOTAL PROTEIN 6.5 gm/dL (6.2-8.1)
[2021-06-30 07:11] LABS: HEMATOCRIT 31.9 % (37.0-47.0)
[2021-06-30 07:13] LABS: PLATELET COUNT 30 K/mm3 (130-400)
[2021-06-30 07:46] VITALS: BP 122/49; PULSE 56; TEMP 98.1
--- NOTE | 2021-06-30 10:55 | NUR ---
The patient has altered mental status. ELBA contacted the patient's daughter, Marlen (ph#[phone]), to discuss discharge plan. Marlen asked that we contact her brother, Robin Richardson (ph#[phone]), to discuss plan and to update on anything. She states that she believes she was taken off the patient's DPOA-HC, but is unsure if they ever completed a new DPOA-HC. We have the patient's DPOA-HC in EMR, which designates Marlen. The alternate is Robin. Marlen states that Robin should be at [facility] now. SW met with the patient and Robin. Robin states he does not think they ever completed a new DPOA-HC. He confirms that the patient resides at [facility] for long-term care and that the plan is for the patient to return back there upon discharge. The patient's PCP is Dr. Deann Mortensen. Robin expressed a concern that they had at the facility. He states that the patient is suppose to have Lactulose 60 ml twice a day, but the patient did not get her afternoon dose. The medicine was just sitting in her room. He is concerned that this is why the patient has altered mental status. ELBA informed Jet at [facility] of this concern. ELBA faxed updates to [facility]. *Discharge plan: [facility]*
[2021-06-30 11:42] VITALS: BP 103/64; PULSE 54; TEMP 98
[2021-06-30 16:00] VITALS: BP 114/42; PULSE 61; TEMP 98.1
--- NOTE | 2021-06-30 18:21 | NUR ---
Pt alert and orietented today, much more awake than what was reported for table games shift manager. Still drowsy on and off. Able to tolerate PO medications and a soft mechanical diet today. Reports she has chronic back pain. Applied the ordered lidocaine patch and frequently repositioned patient as needed. Pt up x2 to use BS with jay assist today. Shift assessment performed. Medications administered per orders and education provided. No significant skin issues noted. HR NSR. Afebrile. Cox catheter in place. Adequate output throughout the day. Pt sitting up eating dinner now. No new reports of pain. Stools were loose today, but brown/summers. Abdomen rounded and soft, active bowel sounds. VS stable. Pt reports no questions, no concerns at this time. Will continue to monitor.
[2021-06-30 19:46] VITALS: BP 111/41; PULSE 58; TEMP 97.9
[2021-06-30 23:48] VITALS: BP 116/35; PULSE 57; TEMP 98.8
[2021-07-01 04:27] VITALS: BP 104/37; PULSE 57; TEMP 98.3
--- NOTE | 2021-07-01 06:13 | NUR ---
PATIENT HAD BOWEL MOVEMENT THROUGHOUT THE NIGHT X3 WITH NURSE. ENCOURAGING FLUIDS THROUGHOUT SHIFT WHILE AWAKE. PATIENT WAS ABLE TO SLEEP SOMEWHAT BUT DIFFICULTY WITH BOWEL MOVMENTS PATIENT IS TAKING LACTULOSE ORDERED. FLORES CATHTETER PATENT BRIAN CARE PROVIDED BY PATIENT. PENDING BLOOD CULTURES. POSSIBLE PARACENTESIS. CALL LIGHT WITHIN REACH WILL CONTINUE TO MONITOR.
[2021-07-01 07:28] VITALS: BP 114/38; PULSE 58; TEMP 97.9
[2021-07-01 07:54] LABS: BASO % 0.7 % (0.0-2.0); EOS # 0.1 K/mm3 (0.0-0.7); EOS % 2.7 % (0.0-4.0); GRAN # 1.7 K/mm3 (1.4-6.5); GRAN % 58.8 % (42.2-75.2); HEMOGLOBIN 11.3 g/dl (12.5-16.0); LYMPH # 0.8 K/mm3 (1.2-3.4); LYMPH % 25.9 % (20.0-51.0); MEAN CELL VOLUME 109 fl (80.0-100.0); MEAN CORPUSCULAR HEMOGLOBIN 38 pg (27-31); MEAN CORPUSCULAR HGB CONC 35 g/dl (33.0-37.0); MEAN PLATELET VOLUME 13.4 fl (7.4-10.4); MONO # 0.3 K/mm3 (0.1-0.6); MONO % 11.6 % (1.7-9.3); RED BLOOD COUNT 3.01 M/mm3 (4.10-5.30); REDCELL DISTRIBUTION WIDTH-CV 13.1 % (11.5-14.5)
[2021-07-01 07:55] LABS: HEMATOCRIT 32.8 % (37.0-47.0)
[2021-07-01 07:57] LABS: ALBUMIN 2.7 gm/dL (3.4-4.8); BILIRUBIN,TOTAL 1.7 mg/dL (0.2-1.2); CALCIUM 9.2 mg/dL (8.4-10.2); CREATININE, serum 1.27 mg/dL (0.57-1.11); MAGNESIUM 1.6 mg/dL (1.6-2.6); PLATELET COUNT 33 K/mm3 (130-400); POTASSIUM 4.2 mmol/L (3.5-4.5); TOTAL PROTEIN 6.7 gm/dL (6.2-8.1)
--- NOTE | 2021-07-01 08:15 | NUR ---
Called critical plt value of 33 to provider. Also informed provider of pt's lower BP's this morning. Provider stated to hold the metoprolol this morning. Will continue to assess vital signs.
--- NOTE | 2021-07-01 10:45 | NUR ---
Pt alert and oriented this morning, sitting up in bed eating breakfast. Pt does not report any pain this morning. Able to tolerate mechanical soft diet very well, adequate appetite. Takes PO medications independently when handed to her. Pt's hands are still a little shaky, but seems to have improved from yesterday. Shift assessment performed. Medications administered per orders and education provided. Lung sounds are clear. HR runs NSR and sinus olaf. Motoprolol held this morning per providers orders (see previous note). VS stable. Pt remains on room air. Pt up to use BSC with assistance. Pt appears to like to try to do things as independent as possible, but remembers her limitations. Pt reports no questions this morning. Will continue to monitor.
[2021-07-01 11:27] VITALS: BP 121/41; PULSE 64; TEMP 98
--- NOTE | 2021-07-01 11:39 | NUR ---
The PA notified SW possible discharge tomorrow. ELBA notified and faxed updates to Jet at [facility].
[2021-07-01 15:19] VITALS: BP 121/38; PULSE 65; TEMP 98
--- NOTE | 2021-07-01 19:16 | NUR ---
No adverse events today. Pt remained alert and oriented. Up to bathroom with assistance today. No reports of pain. Adequate I&O today. VS stable. Pt was less shaky throughout the day and was more awake today vs. yesterday. Pt reports no questions. No concerns at this time.
[2021-07-01 19:59] VITALS: BP 113/41; PULSE 69; TEMP 98
--- NOTE | 2021-07-01 22:17 | NUR ---
AAOX4 ABLE TO MAKE NEEDS KNOWN PATIENT CONTINUES TO AMBULATE SELF TO BR WITH STANDBY. PATIENT TO POSSIBLY DISCHARGE BACK TO [facility] TOMORROW. AND POSSIBLE OUTPATIENT INDIO. FLORES CATHETER IN PLACE WORKING ADEQUATELY BAG BELOW BLADDER. IV TO L FA PAIN NOTED WITH FLUSH D/C. CONTINUES ON ACUCHECKS NO INSULIN NEEDED AT THIS TIME. FLEXERIL REMAINS ON HOLD AT THIS TIME. WILL CONTINUE TO MONITOR FOR ANY CHANGES THROUGHOUT SHIFT.
[2021-07-01 23:43] VITALS: BP 116/35; PULSE 75; TEMP 98.1
[2021-07-02 03:57] VITALS: BP 113/35; PULSE 68; TEMP 98.3
--- NOTE | 2021-07-02 05:15 | NUR ---
PATIETN SLEPT THROUGHOUT THE NIGHT HAD LESS EPISODES OF DIARRHEA TONIGHT THEN LAST NIGHT. NO C/O PAIN CALL LIGHT WITHIN REACH PATIENT AWARE OF POSSIBLE DISCHARGE WILL CONTINUE TO MONITOR FOR ANY CHANGES.
[2021-07-02 06:06] LABS: BASO % 0.3 % (0.0-2.0); EOS # 0.1 K/mm3 (0.0-0.7); EOS % 3.8 % (0.0-4.0); GRAN # 1.5 K/mm3 (1.4-6.5); HEMOGLOBIN 10.6 g/dl (12.5-16.0); LYMPH # 0.9 K/mm3 (1.2-3.4); LYMPH % 29.7 % (20.0-51.0); MEAN CELL VOLUME 107 fl (80.0-100.0); MEAN CORPUSCULAR HEMOGLOBIN 37 pg (27-31); MEAN CORPUSCULAR HGB CONC 35 g/dl (33.0-37.0); MEAN PLATELET VOLUME 14.1 fl (7.4-10.4); MONO # 0.3 K/mm3 (0.1-0.6); MONO % 11.9 % (1.7-9.3); RED BLOOD COUNT 2.84 M/mm3 (4.10-5.30); REDCELL DISTRIBUTION WIDTH-CV 12.8 % (11.5-14.5)
[2021-07-02 06:11] LABS: ALBUMIN 2.6 gm/dL (3.4-4.8); BILIRUBIN,TOTAL 1.7 mg/dL (0.2-1.2); CALCIUM 8.9 mg/dL (8.4-10.2); CREATININE, serum 1.17 mg/dL (0.57-1.11); POTASSIUM 4.2 mmol/L (3.5-4.5); TOTAL PROTEIN 6.3 gm/dL (6.2-8.1)
[2021-07-02 06:12] LABS: HEMATOCRIT 30.5 % (37.0-47.0)
[2021-07-02 06:13] LABS: PLATELET COUNT 32 K/mm3 (130-400)
[2021-07-02 07:08] VITALS: BP 113/33; PULSE 67; TEMP 98.3
[2021-07-02] MEDS ORDERED: XIFAXAN550 MG PO (07:17)
--- NOTE | 2021-07-02 10:16 | NUR ---
FLORES CATHETER REMOVED AT THIS TIME. PATIENT VOIDING ON OWN WITHOUT DIFFICULTY. TO DC TODAY BACK TO [facility]. IV TO RIGHT HAND/WRIST REMOVED. PATIENT AMBULATED TO BATHROOM WITHOUT DIFFICULTY. FREIGHT HANDLER TO ARRANGE TRANSPORT TO FACILITY.
--- NOTE | 2021-07-02 11:12 | NUR ---
The patient is to discharge today, 07/02, back to [facility] for long-term care. Transportation was scheduled at 1200, via [facility]. SW informed the patient's RN and her son, Robin, of the transport time. They were both agreeable to the time. No additional needs at this time.
--- NOTE | 2021-07-02 12:33 | NUR ---
PATIENT DEPARTED FACILITY AT THIS TIME WITH [facility] TRANSPORT SERV[facility]. STABLE CONDITION.
== END 2021-07-02 12:28 | disposition home or self-care (01) ==
LOC: COL.ER 13:15 → MEDICAL 19:01
PROVIDERS: Nurse Practitioner Primary Care; Physician Assistant; ADMIT Family Medicine
DX: K72.90 Hepatic failure, unspecified without coma (principal); K75.81 Nonalcoholic steatohepatitis (NASH); M54.9 Dorsalgia, unspecified; M25.552 Pain in left hip; G40.909 Epilepsy, unspecified, not intractable, without status epilepticus; N17.9 Acute kidney failure, unspecified; E87.2 Acidosis; I10 Essential (primary) hypertension; E11.9 Type 2 diabetes mellitus without complications; I85.00 Esophageal varices without bleeding; D61.818 Other pancytopenia; R53.81 Other malaise; I81 Portal vein thrombosis; Z20.822 Contact with and (suspected) exposure to COVID-19; Z79.899 Other long term (current) drug therapy; Z79.84 Long term (current) use of oral hypoglycemic drugs; Z87.891 Personal history of nicotine dependence
CPT/HCPCS: 99233-AI; 99239; G0378; J1953; J7030

== ENCOUNTER 2021-07-16 07:30 | Outpatient (CLI) | payer MEDICARE, MEDICAID ==
[~2021-07-16] VITALS: Ht 149.9 cm; Wt 69.4 kg
[~2021-07-16 07:30] MED LIST changes: +FLEXERIL 1010 MG/TAB PO; +JANUVIA50 MG PO; +KEPPRA 500MG500 MG PO; +SALONPAS1 EACH TP; +XIFAXAN550 MG PO
[2021-07-16 08:12] LABS: HEMATOCRIT 31.4 % (37.0-47.0); MEAN CELL VOLUME 106 fl (80.0-100.0); MEAN CORPUSCULAR HEMOGLOBIN 37 pg (27-31); MEAN CORPUSCULAR HGB CONC 35 g/dl (33.0-37.0); MEAN PLATELET VOLUME 13.5 fl (7.4-10.4); RED BLOOD COUNT 2.96 M/mm3 (4.10-5.30); REDCELL DISTRIBUTION WIDTH-CV 13.1 % (11.5-14.5)
[2021-07-16 08:14] LABS: INR 1.3 (0.8-3.0); PLATELET COUNT 32 K/mm3 (130-400)
[2021-07-16 08:15] VITALS: BP 127/55; PULSE 63; TEMP 98.5
[2021-07-16 08:26] LABS: CALCIUM 9.2 mg/dL (8.4-10.2); CREATININE, serum 1.1 mg/dL (0.57-1.11); POTASSIUM 4.2 mmol/L (3.5-4.5)
[2021-07-16] MEDS ORDERED: MULTI VITAMINS1 TAB PO (08:40)
[2021-07-16] MEDS ORDERED: JANUVIA50 MG PO (08:45)
[2021-07-16] MEDS ORDERED: KEPPRA 500MG500 MG PO (08:46)
[2021-07-16] MEDS ORDERED: SALONPAS1 EACH TP (08:47)
[2021-07-16] MEDS ORDERED: XIFAXAN550 MG PO (08:48)
--- NOTE | 2021-07-16 09:30 | NUR ---
After discussion with cassiean and pt, procedure cancelled due to concern for potential bleeding complications with low PLT count. INT DC'd. Pt assisted to restroom and to dress. She is now sitting up in chair awaiting discharge paperwork. Call light in hand. This nurse will notify [facility] of cancellation and to send transport.
--- NOTE | 2021-07-16 10:00 | NUR ---
Pt assisted out by wheelchair to meet [facility] transprot staff.
== END 2021-07-16 10:00 | disposition home or self-care (01) ==
LOC: COL.RAD 07:30
PROVIDERS: Internal Medicine Adult Congenital Heart Disease
DX: K70.30 Alcoholic cirrhosis of liver without ascites (principal); Q21.1 Atrial septal defect
CPT/HCPCS: J2704

== ENCOUNTER → 2021-09-09 | Outpatient (CLI) | payer MEDICARE, MEDICAID ==
[~2021-09-09] MED LIST changes: +MULTI VITAMINS1 TAB PO
[2021-09-09 11:40] LABS: INR 1.2 (0.8-3.0); PROTHROMBIN TIME 13.2 SECONDS (9.7-12.8)
[2021-09-09 11:41] LABS: HEMATOCRIT 32.1 % (37.0-47.0); HEMOGLOBIN 10.8 g/dl (12.5-16.0); MEAN CELL VOLUME 110 fl (80.0-100.0); MEAN CORPUSCULAR HEMOGLOBIN 37 pg (27-31); MEAN CORPUSCULAR HGB CONC 34 g/dl (33.0-37.0); MEAN PLATELET VOLUME 13.4 fl (7.4-10.4); RED BLOOD COUNT 2.93 M/mm3 (4.10-5.30); REDCELL DISTRIBUTION WIDTH-CV 13.6 % (11.5-14.5)
[2021-09-09 11:44] LABS: PLATELET COUNT 38 K/mm3 (130-400)
[2021-09-09 11:51] LABS: ALBUMIN 3.1 gm/dL (3.4-4.8); BILIRUBIN,TOTAL 2.1 mg/dL (0.2-1.2); CALCIUM 9.1 mg/dL (8.4-10.2); CREATININE, serum 0.92 mg/dL (0.57-1.11); POTASSIUM 3.7 mmol/L (3.5-4.5); TOTAL PROTEIN 7.4 gm/dL (6.2-8.1)
== END ==
LOC: ZLAB.STJ 11:09
PROVIDERS: Internal Medicine Gastroenterology
DX: K75.81 Nonalcoholic steatohepatitis (NASH) (principal); K74.60 Unspecified cirrhosis of liver

== ENCOUNTER → 2021-09-28 | Outpatient (CLI) | payer MEDICARE, MEDICAID | LOC: COL.RAD 07:30 | DX: K70.30 Alcoholic cirrhosis of liver without ascites (principal); I86.8 Varicose veins of other specified sites ==

== ENCOUNTER 2022-05-17 13:20 | Observation (INO) | payer MEDICARE, MEDICAID ==
[~2022-05-17] VITALS: Ht 144.8 cm; Wt 78.6 kg
[2022-05-17 14:11] LABS: HEMOGLOBIN 12.3 g/dl (12.5-16.0); MEAN CELL VOLUME 104 fl (80.0-100.0); MEAN CORPUSCULAR HEMOGLOBIN 36 pg (27-31); MEAN CORPUSCULAR HGB CONC 35 g/dl (33.0-37.0); MEAN PLATELET VOLUME 13.6 fl (7.4-10.4); RED BLOOD COUNT 3.41 M/mm3 (4.10-5.30); REDCELL DISTRIBUTION WIDTH-CV 13.5 % (11.5-14.5)
[2022-05-17 14:18] LABS: HEMATOCRIT 35.4 % (37.0-47.0)
[2022-05-17 14:21] LABS: PLATELET COUNT 41 K/mm3 (130-400)
[2022-05-17 14:41] LABS: ALANINE AMINOTRANSFERASE 35 U/L (0-55); ALBUMIN 3.4 gm/dL (3.4-4.8); ALKALINE PHOSPHATASE 122 U/L (40-150); ANION GAP 10 mmol/L (7-16); AST,SGOT 79 U/L (5-34); BILIRUBIN,TOTAL 1.8 mg/dL (0.2-1.2); BLOOD UREA NITROGEN 36 mg/dL (10-20); CALCIUM 9.5 mg/dL (8.4-10.2); CHLORIDE 116 mmol/L (98-107); CREATININE, serum 2.09 mg/dL (0.57-1.11); GLUCOSE 139 mg/dL (70-99); POTASSIUM 4.2 mmol/L (3.5-4.5); SODIUM 138 mmol/L (136-145); TOTAL PROTEIN 7.8 gm/dL (6.2-8.1)
[2022-05-17 14:43] LABS: BAND 1 % (0-10); EOSINOPHIL 1 % (0-4); LYMPHOCYTE 25 % (20.0-51.0); NEUTROPHILS 69 % (42.0-75.2)
[2022-05-17 14:44] LABS: CARBON DIOXIDE 12 mmol/L (23-31); PLATELET ESTIMATE DECREASED (NORMAL); TROPONIN-I < 0.010 ng/mL (0.00-0.033)
[2022-05-17 15:07] LABS: COLLECTION METHOD CATHETER
[2022-05-17 15:12] LABS: URINE APPEARANCE Cloudy (CLEAR/HAZY); URINE BLOOD TRACE-LYSED (NEGATIVE); URINE COLOR Yellow (YELLOW); URINE GLUCOSE Negative (NEGATIVE); URINE KETONE Negative (NEGATIVE); URINE NITRATE Negative (NEGATIVE); URINE PROTEIN(semi-quant) 1+ (NEGATIVE); URINE UROBILINOGEN 0.2 E.U/dL (0.2-1.0)
[2022-05-17 15:17] LABS: MUCOUS Present (NOT PRESENT); URINE BACTERIA None Seen /hpf (NONE SEEN); URINE RBC 0-2 /hpf (0-2)
[2022-05-17 16:40] LABS: CALCIUM 8.5 mg/dL (8.4-10.2); CREATININE, serum 1.83 mg/dL (0.57-1.11); POTASSIUM 4.2 mmol/L (3.5-4.5)
[2022-05-17] MEDS ORDERED: ULTRAM 50MG TAB50 MG PO (17:14)
[2022-05-17] MEDS ORDERED: VOLTAREN GEL 1%1 TU TP (17:15)
[2022-05-17] MEDS ORDERED: TYLENOL 325MG325 MG PO (17:17)
[2022-05-17 20:12] VITALS: BP 128/51; BP 135/30; PULSE 73; TEMP 97.7
[2022-05-18 00:17] VITALS: BP 133/43; PULSE 71; TEMP 97.3
[2022-05-18 00:59] LABS: CALCIUM 8.4 mg/dL (8.4-10.2); CREATININE, serum 1.63 mg/dL (0.57-1.11); POTASSIUM 3.9 mmol/L (3.5-4.5)
--- NOTE | 2022-05-18 01:40 | NUR ---
PATIENT UP FROM ED. PATIENT ORIENTATED TO SELF BUT NOT RESPONDING TO ORIENTATION QUESTIONS. PATIENT DENIES PAIN AND IS ABLE TO TAKE ORAL MEDICATIONS. INFORMATION FOR ADMISSION FOUND FROM PATIENT CHART. CALL LIGHT WITHIN REACH AND SAFECALL ON
[2022-05-18 04:53] VITALS: BP 111/41; PULSE 73; TEMP 98.7
[2022-05-18 07:17] LABS: MEAN CELL VOLUME 104 fl (80.0-100.0); MEAN CORPUSCULAR HGB CONC 35 g/dl (33.0-37.0); MEAN PLATELET VOLUME 13.2 fl (7.4-10.4); RED BLOOD COUNT 2.87 M/mm3 (4.10-5.30); REDCELL DISTRIBUTION WIDTH-CV 13.2 % (11.5-14.5)
[2022-05-18 07:21] LABS: CALCIUM 8.6 mg/dL (8.4-10.2); CREATININE, serum 1.58 mg/dL (0.57-1.11); HEMATOCRIT 29.8 % (37.0-47.0); MEAN CORPUSCULAR HEMOGLOBIN 36 pg (27-31); POTASSIUM 3.5 mmol/L (3.5-4.5)
[2022-05-18 07:23] LABS: PLATELET COUNT 33 K/mm3 (130-400)
[2022-05-18 07:24] LABS: HEMOGLOBIN 10.3 g/dl (12.5-16.0)
[2022-05-18 07:40] VITALS: BP 143/36; PULSE 75; TEMP 97.6
[2022-05-18 08:35] LABS: BAND 2 % (0-10); BASOPHIL 1 % (0-2); EOSINOPHIL 4 % (0-4); LYMPHOCYTE 23 % (20.0-51.0); NEUTROPHILS 57 % (42.0-75.2); PLATELET ESTIMATE DECREASED (NORMAL)
--- NOTE | 2022-05-18 10:47 | NUR ---
The patient has altered mental status. ELBA contacted the patient's son, Robin (#[phone]), to discuss discharge plan. The patient resides at [facility]. Her PCP is Dr. Deann Mortensen. The patient has a DPOA-HC that designates the patient's daughter, Marlen. The alternate is Robin. Robin states that the patient completed a new DPOA-HC, that designates him as the primary. Robin confirms that the plan is for the patient to return back to [facility] upon discharge. ELBA contacted and faxed updates to [place] at [facility]. ELBA also requested the patient's updated DPOA-HC from [place]. *Discharge plan: [facility]*
[2022-05-18 11:04] VITALS: BP 130/45; PULSE 66; TEMP 96.4
--- NOTE | 2022-05-18 12:50 | NUR ---
Shift assessment is done this morning. Patient is alert and able to answer about her name, place, and date of this morning. Patient is taking lactulose and has 4 episode of loose BM untill 1230. She tried to go to bathroom hersel this afternoon but couldn't make it and had BM accident on room floor. She is cleaned and has clean gown and new shocks on. Will continue to monitor her.
[2022-05-18 16:00] VITALS: BP 129/43; PULSE 66; TEMP 97.8
[2022-05-18 19:31] VITALS: BP 146/43; PULSE 58; TEMP 98.3
[2022-05-19] VITALS: BP 110/43; PULSE 59; TEMP 98
[2022-05-19 04:35] VITALS: BP 141/42; PULSE 66; TEMP 98.1
--- NOTE | 2022-05-19 04:56 | NUR ---
PATIENT PULLED OUT IV. CATHETER TIP INTACT AND AREA NO LONGER BLEEDING WHEN FOUND. PATIENT STATED SHE WAS SORRY FOR PULLING OUT IV AND DIDNT MEAN TO. CARLITOS JEAN NOTIFIED AND STATED OK TO LEAVE IV OUT FOR NO. NO FURTHER COMMENTS OR CONCERNS AT THIS TIME
--- NOTE | 2022-05-19 07:00 | NUR ---
PT RESTING IN BED. BEDALARM ACTIVE. PT LETHARGIC BUT AROUSES TO VOICE. PT GIVEN CALL LIGHT AND INSTRUCTED TO CALL WITH ALL NEEDS AND NOT TO GET UP WITHOUT ASSISTANCE.
[2022-05-19 07:04] LABS: MEAN CELL VOLUME 102 fl (80.0-100.0); MEAN CORPUSCULAR HEMOGLOBIN 36 pg (27-31); MEAN CORPUSCULAR HGB CONC 35 g/dl (33.0-37.0); MEAN PLATELET VOLUME 13.6 fl (7.4-10.4); REDCELL DISTRIBUTION WIDTH-CV 13.2 % (11.5-14.5)
[2022-05-19 07:09] LABS: CALCIUM 8.4 mg/dL (8.4-10.2); CREATININE, serum 1.46 mg/dL (0.57-1.11); POTASSIUM 3.6 mmol/L (3.5-4.5)
[2022-05-19 07:13] LABS: HEMATOCRIT 28.6 % (37.0-47.0)
[2022-05-19 07:14] LABS: PLATELET COUNT 34 K/mm3 (130-400)
[2022-05-19 08:22] LABS: BAND 4 % (0-10); BASOPHIL 1 % (0-2); EOSINOPHIL 2 % (0-4); LYMPHOCYTE 19 % (20.0-51.0); NEUTROPHILS 70 % (42.0-75.2); PLATELET ESTIMATE DECREASED (NORMAL)
[2022-05-19 08:44] VITALS: BP 104/27; PULSE 62; TEMP 98
[2022-05-19] MEDS ORDERED: SODIUM BICARBO650 MG PO (09:50)
--- NOTE | 2022-05-19 10:42 | NUR ---
The clinical team is ready to discharge the patient today. ELBA notified Jet at [facility]. Transportation was scheduled at 1400. ELBA contacted and updated the patient's son, Robin. He is in agreement to the plan. The patient is to discharge today, 05/19, back to [facility] for long-term care. Transportation provided by [facility]. No additonal needs at this time.
[2022-05-19 11:48] VITALS: BP 134/44; PULSE 62; TEMP 98.1
--- NOTE | 2022-05-19 13:00 | NUR ---
REPORT CALLED TO KORY PFEIFFER AT [facility]. ALL QUESTIONS ANSWERED.
--- NOTE | 2022-05-19 14:25 | NUR ---
PT DISCHARGED BACK TO [facility] BY THEIR TRANSPORT. DISCHARGE PACKET GIVEN TO FISCAL MANAGER.
== END 2022-05-19 14:26 | disposition home or self-care (01) ==
LOC: COL.ER 13:20 → MEDICAL 18:33
PROVIDERS: Emergency Medicine; Student in an Organized Health Care Education/Training Program; ADMIT Internal Medicine
DX: R41.82 Altered mental status, unspecified (principal); K76.82 Hepatic encephalopathy; E11.22 Type 2 diabetes mellitus with diabetic chronic kidney disease; I12.9 Hypertensive chronic kidney disease with stage 1 through stage 4 chronic kidney disease, or unspecified chronic kidney disease; N18.30 Chronic kidney disease, stage 3 unspecified; Z79.84 Long term (current) use of oral hypoglycemic drugs; N17.9 Acute kidney failure, unspecified; Z20.822 Contact with and (suspected) exposure to COVID-19; D69.6 Thrombocytopenia, unspecified; I81 Portal vein thrombosis; G40.909 Epilepsy, unspecified, not intractable, without status epilepticus; Z79.899 Other long term (current) drug therapy
CPT/HCPCS: G0378; J7030